=== PATIENT | male | born 1960 | race African-American/Black ===

== ENCOUNTER 2018-12-01 18:11 | Emergency (ER) | payer OTHER ==
[2018-12-01] MEDS ORDERED: KETOROLAC 30 MG/ML INJ ONE (19:05)
[2018-12-01] MEDS ORDERED: MORPHINE 4 MG/ML SYR ONE (19:56)
--- NOTE | 2018-12-01 20:02 | EDPHYS ---
Physician Documentation [facility] Name: Nain Raman Age: 58 yrs Sex: Male : 1960 Arrival Date: 12/01/2018 Time: 18:13 Bed 6 Private MD: Jesus Sorensen V ED Physician Ish العراقي HPI: 12/01 19:15 This 58 yrs old Black Male presents to ER via Ambulatory with complaints of Arm Pain, jmm Neck Pain, <24hrs Old. 19:15 The patient or guardian complains of pain. Onset: The symptoms/episode began/occurred jmm gradually, 3 month(s) ago. Modifying factors: The symptoms are alleviated by nothing. the symptoms are aggravated by movement. Associated signs and symptoms: Pertinent negatives: fever. This is a 58 year old male with a history of htn that presents to the ED with complaints of chronic right shoulder pain which has worsened over the past 3 months. States the pain radiates down his right arm. Pain is worsened with movement. Denies chest pain, denies shortness of breath. . Historical: - Allergies: 18:15 Sulfa (Sulfonamide Antibiotics); sv - Home Meds: 18:51 amlodipine 10 mg tab 1 tab once daily [Active]; losartan potassium 100 mg daily ph [Active]; - PMHx: 18:15 Hypertension; sv - PSHx: 18:15 back surgery; sv - Immunization history:: Adult Immunizations unknown. - Social history:: Smoking status: Patient/guardian denies using tobacco. - Ebola Screening: : No symptoms or risks identified at this time. ROS: 19:15 Constitutional: Negative for fever, chills, and weight loss, Cardiovascular: Negative jmm for chest pain, palpitations, and edema, Respiratory: Negative for shortness of breath, cough, wheezing, and pleuritic chest pain. 19:15 MS/extremity: Positive for pain. 19:15 All other systems are negative. Exam: 19:15 Constitutional: This is a well developed, well nourished patient who is awake, alert, jmm and in no acute distress. Head/Face: atraumatic. Eyes: EOMI, no conjunctival erythema appreciated ENT: Moist Mucus Membranes Neck: Trachea midline, Supple Chest/axilla: Normal chest wall appearance and motion. Cardiovascular: Regular rate and rhythm. No edema appreciated Respiratory: Normal respirations, no respiratory distress appreciated Abdomen/GI: Non distended, soft 19:15 Musculoskeletal/extremity: ROM: intact in all extremities, right anterior shoulder is TTP, FROM appreciated, full tree deadener strength, full radial pulse, NVI. 19:15 Skin: Appearance: Color: normal in color. 19:15 Neuro: Orientation: is normal, Mentation: is normal, Memory: is normal. 19:15 Psych: Behavior/mood is pleasant, cooperative. Vital Signs: 18:15 BP 123 / 92; Pulse 89; Resp 16; Temp 98.5; Pulse Ox 99% ; Weight 109.77 kg; Height 6 sv ft. 1 in. (185.42 cm); 19:05 BP 112 / 82; Pulse 85; Resp 17; Temp 98.7; Pulse Ox 99% ; Pain 10/10; rr5 19:50 BP 122 / 90; Pulse 80; Resp 16; Pulse Ox 98% ; Pain 10/10; rr5 20:25 BP 125 / 70; Pulse 86; Resp 16; Temp 98.1; Pulse Ox 98% ; Pain 6/10; rr5 18:15 Body Mass Index 31.93 (109.77 kg, 185.42 cm) sv MDM: 18:33 Patient medically screened. [facility] 19:59 Data reviewed: vital signs, nurses notes. Counseling: I had a detailed discussion with ban the patient and/or guardian regarding: the historical points, exam findings, and any diagnostic results supporting the discharge/admit diagnosis, radiology results, the need for outpatient follow up, to return to the emergency department if symptoms worsen or persist or if there are any questions or concerns that arise at home. ED course: Patient is alert and non toxic in appearance in the ED. Patient advised to follow up with ortho and otherwise given strict return precautions. Patient understood and agrees with the plan of care. . 12/01 18:38 Order name: Shoulder Right (2 View) XRAY; Complete Time: 20:25 [facility] Administered Medications: 19:07 Drug: Ketorolac 30 mg Route: IM; Site: left deltoid; rr5 19:55 Follow up: Response: Pain is unchanged, physician notified rr5 19:57 Drug: morphine 4 mg {Note: rass 0.} Route: IM; Site: right gluteus; rr5 20:27 Follow up: Response: No adverse reaction; Pain is decreased; RASS: Alert and Calm (0) rr5 Disposition: 12/02 09:14 Co-signature as Attending Physician, Ish العراقي MD I agree with the assessment and [facility] plan of care. Disposition: 12/01/18 20:00 Discharged to Home. Impression: Pain in right shoulder. - Condition is Stable. - Discharge Instructions: Shoulder Pain. - Prescriptions for Ultracet 37.5- 325 mg Oral Tablet - take 1 tablet by ORAL route every 6 hours - for up to 5 days; do not exceed 8 tablets per day.; 12 tablet. Zanaflex 4 mg Oral Tablet - take 1 tablet by ORAL route every 8 hours As needed; 20 tablet. Medrol (Dino) 4 mg Oral Tablets, Dose Pack - take 1 tablet by ORAL route as directed - follow package instructions; 1 packet. - Medication Reconciliation Form, Thank You Letter, Antibiotic Education, Prescription Opioid Use form. - Follow up: Private Physician; When: 2 - 3 days; Reason: Recheck today's complaints, Continuance of care, Re-evaluation by your physician. Signatures: Dispatcher [employer] Josie Thomas, RN RN Ish Trejo MD MD cha Mickail, Joel, PA PA Isabel Jacques, RN RN Silvino Saleh RN RN rr5 Corrections: (The following items were deleted from the chart) 12/01 20:27 20:00 12/01/2018 20:00 Discharged to Home. Impression: Pain in right shoulder. rr5 Condition is Stable. Forms are Medication Reconciliation Form, Thank You Letter, Antibiotic Education, Prescription Opioid Use. Follow up: Private Physician; When: 2 - 3 days; Reason: Recheck today's complaints, Continuance of care, Re-evaluation by your physician. ban
--- NOTE | 2018-12-01 20:02 | ER ---
Nurse's Notes [facility] Name: Nain Raman Age: 58 yrs Sex: Male : 1960 Arrival Date: 12/01/2018 Time: 18:13 Bed 6 Private MD: Jesus Sorensen V Diagnosis: Pain in right shoulder Presentation: 12/01 18:14 Presenting complaint: Patient states: right arm pain that radiates up the right sv shoulder started today. Denies CP or SOB. Transition of care: patient was not received from another setting of care. Onset of symptoms was December 01, 2018. Care prior to arrival: None. 18:14 Method Of Arrival: Ambulatory sv 18:14 Acuity: ALBERT 3 sv 18:22 Risk Assessment: Do you want to hurt yourself or someone else? Patient reports no ph desire to harm self or others. Initial Sepsis Screen: Does the patient meet any 2 criteria? No. Patient's initial sepsis screen is negative. Does the patient have a suspected source of infection? No. Patient's initial sepsis screen is negative. Historical: - Allergies: 18:15 Sulfa (Sulfonamide Antibiotics); sv - Home Meds: 18:51 amlodipine 10 mg tab 1 tab once daily [Active]; losartan potassium 100 mg daily ph [Active]; - PMHx: 18:15 Hypertension; sv - PSHx: 18:15 back surgery; sv - Immunization history:: Adult Immunizations unknown. - Social history:: Smoking status: Patient/guardian denies using tobacco. - Ebola Screening: : No symptoms or risks identified at this time. Screenin:22 Abuse screen: Denies threats or abuse. Denies injuries from another. Nutritional ph screening: No deficits noted. Tuberculosis screening: No symptoms or risk factors identified. Fall Risk None identified. Assessment: 18:30 General: Appears in no apparent distress. comfortable, well groomed, Behavior is calm, ph cooperative, appropriate for age, Denies fever, feeling ill. Pain: Complains of pain in right arm Pain radiates to anterior aspect of right shoulder and posterior aspect of right shoulder. Neuro: Level of Consciousness is awake, alert, obeys commands, Oriented to person, place, time, situation. Cardiovascular: Denies chest pain, nausea, shortness of breath, Capillary refill < 3 seconds in bilateral fingers Patient's skin is warm and dry. Respiratory: Airway is patent Respiratory effort is even, unlabored. Derm: Skin is intact, is healthy with good turgor, Skin is pink, warm \T\ dry. Musculoskeletal: Circulation, motion, and sensation intact. Range of motion: intact in all extremities. 19:00 General: Appears in no apparent distress. comfortable, Behavior is calm, cooperative, rr5 appropriate for age. Pain: Complains of pain in anterior aspect of right shoulder and posterior aspect of right shoulder Pain radiates to right arm Pain currently is 10 out of 10 on a pain scale. Quality of pain is described as aching, Pain began gradually, Is intermittent. Neuro: Level of Consciousness is awake, alert, obeys commands, Oriented to person, place, time, situation, Appropriate for age. Cardiovascular: Capillary refill < 3 seconds Patient's skin is warm and dry. Respiratory: Airway is patent Respiratory effort is even, unlabored, Respiratory pattern is regular, symmetrical. GI: No signs and/or symptoms were reported involving the gastrointestinal system. : No signs and/or symptoms were reported regarding the genitourinary system. EENT: No signs and/or symptoms were reported regarding the EENT system. Derm: Skin is intact, is healthy with good turgor, Skin is pink, warm \T\ dry. Musculoskeletal: Circulation, motion, and sensation intact. Capillary refill < 3 seconds, Range of motion: limited in right shoulder Reports pain in anterior aspect of right shoulder and posterior aspect of right shoulder Pain is 10 out of 10 on a pain scale. 19:50 Reassessment: ED provider informed with order made and carried out. see MAR Patient rr5 states symptoms have not improved. 20:25 Reassessment: Patient appears in no apparent distress at this time. no complaints of rr5 itchiness or .feels relieved pain score 6/10. discharge instruction given and explained, verbalized understanding Patient states feeling better. Patient states symptoms have improved. Vital Signs: 18:15 BP 123 / 92; Pulse 89; Resp 16; Temp 98.5; Pulse Ox 99% ; Weight 109.77 kg; Height 6 sv ft. 1 in. (185.42 cm); 19:05 BP 112 / 82; Pulse 85; Resp 17; Temp 98.7; Pulse Ox 99% ; Pain 10/10; rr5 19:50 BP 122 / 90; Pulse 80; Resp 16; Pulse Ox 98% ; Pain 10/10; rr5 20:25 BP 125 / 70; Pulse 86; Resp 16; Temp 98.1; Pulse Ox 98% ; Pain 6/10; rr5 18:15 Body Mass Index 31.93 (109.77 kg, 185.42 cm) ED Course: 18:13 Patient arrived in ED. as 18:13 Jesus Sorensen MD is Private Physician. as 18:15 Triage completed. sv 18:15 Arm band placed on. sv 18:17 Isabel Wynn, RN is Primary Nurse. ph 18:22 Marcio Yee PA is PHCP. [facility] 18:22 Ish العراقي MD is Attending Physician. [facility] 18:23 Patient has correct armband on for positive identification. Placed in gown. Bed in low ph position. Call light in reach. Side rails up X 1. 18:51 No provider procedures requiring assistance completed. Patient did not have IV access ph during this emergency room visit. 19:00 Shoulder Right (2 View) XRAY In Process Unspecified. EDMS Administered Medications: 19:07 Drug: Ketorolac 30 mg Route: IM; Site: left deltoid; rr5 19:55 Follow up: Response: Pain is unchanged, physician notified rr5 19:57 Drug: morphine 4 mg {Note: rass 0.} Route: IM; Site: right gluteus; rr5 20:27 Follow up: Response: No adverse reaction; Pain is decreased; RASS: Alert and Calm (0) rr5 Outcome: 20:00 Discharge ordered by MD. [facility] 20:26 Discharged to home ambulatory, with family. rr5 20:26 Condition: stable 20:26 Discharge instructions given to patient, Instructed on discharge instructions, follow up and referral plans. medication usage, Demonstrated understanding of instructions, follow-up care, medications, Prescriptions given X 3. 20:27 Patient left the ED. rr5 Signatures: Dispatcher [employer] EDMS Josie Banda, RN RN Marcio Yee PA PA jmm Martinez, Amelia as Hall, Patricia, OLGA ESPINOZA Silvino Saleh RN RN rr5
--- NOTE | 2018-12-01 20:03 | RAD REPORT ---
EXAM DESCRIPTION: Shoulder Right 2 View - 12/01/2018 6:59 pm CLINICAL HISTORY: Right arm pain, right shoulder pain COMPARISON: None. TECHNIQUE: Internal and external rotation views of the right shoulder were obtained. FINDINGS: No fracture or dislocation of the proximal humerus. Acromial humeral joint space is narrow ed. No soft tissue calcifications seen. No spurring at the AC joint. Widening of the AC joint is not clearly outside of normal range but can be correlated with the appearance of the left shoulder. No a cute or suspicious findings. IMPRESSION: No fracture, dislocation or acute right humerus finding. Relative widening of the AC joint is not outside of range of normal. Clinical concerns for a mild or grade 1 injury of the AC joint can be compared with the asymptomatic left shoulder.
[2018-12-01 20:42] VITALS: O2SAT 98
[2018-12-01 20:44] VITALS: BP 125/70; TEMP 98.1
== END 2018-12-01 20:27 | disposition home or self-care (01) ==
LOC: ER 18:11
DX: M25.511 Pain in right shoulder (principal); I10 Essential (primary) hypertension; Z88.2 Allergy status to sulfonamides
CPT/HCPCS: 96372; 99283

== ENCOUNTER 2019-01-31 14:23 | Emergency (ER) | payer OTHER ==
[2019-01-31] MEDS ORDERED: dexAMETHasone 10 MG/ML VIAL ONE (16:13)
[2019-01-31] MEDS ORDERED: KETOROLAC 30 MG/ML INJ ONE (16:13)
--- NOTE | 2019-01-31 16:48 | EDPHYS ---
Physician Documentation [facility] Name: Nain Raman Age: 58 yrs Sex: Male : 1960 Arrival Date: 01/31/2019 Time: 14:27 Bed 11 Private MD: Jesus Sorensen V ED Physician Rivera Moralez HPI: 01/31 16:39 This 58 yrs old Black Male presents to ER via Ambulatory with complaints of Arm Pain. jmm 16:39 The patient or guardian complains of pain. Onset: The symptoms/episode began/occurred jmm gradually, 1 month(s) ago. Treatment prior to arrival includes: no previous treatment. Associated signs and symptoms: Pertinent positives: decreased range of motion. This is a 58 year old male with a history of htn that presents to the ED with complaints of right shoulder pain beginning 1 month ago. Patient states the pain was transiently relieved after a visit in the ED. Symptoms have returned without any known injury. . Historical: - Allergies: 14:52 Sulfa (Sulfonamide Antibiotics); aa5 - PMHx: 14:52 Hypertension; aa5 - PSHx: 14:52 back surgery; aa5 - Immunization history:: Flu vaccine is not up to date. - Social history:: Smoking status: Patient/guardian denies using tobacco. - Ebola Screening: : No symptoms or risks identified at this time. ROS: 16:39 Constitutional: Negative for fever, chills, and weight loss, Cardiovascular: Negative jmm for chest pain, palpitations, and edema, Respiratory: Negative for shortness of breath, cough, wheezing, and pleuritic chest pain. 16:39 MS/extremity: Positive for pain. 16:39 All other systems are negative. Exam: 16:39 Constitutional: This is a well developed, well nourished patient who is awake, alert, jmm and in no acute distress. Head/Face: atraumatic. Eyes: EOMI, no conjunctival erythema appreciated ENT: Moist Mucus Membranes Neck: Trachea midline, Supple Chest/axilla: Normal chest wall appearance and motion. Cardiovascular: Regular rate and rhythm. No edema appreciated Respiratory: Normal respirations, no respiratory distress appreciated Abdomen/GI: Non distended, soft Back: Normal ROM Skin: General appearance color normal 16:39 Musculoskeletal/extremity: right lateral shoulder pain on palpation, painful abduction, full grinder watch parts strength, NVI. 16:39 Skin: Appearance: Color: normal in color. 16:39 Neuro: Motor: is normal. Vital Signs: 14:52 BP 114 / 92; Pulse 85; Resp 16 S; Temp 98.9(TE); Pulse Ox 97% on R/A; Weight 108.86 kg aa5 (R); Height 6 ft. 1 in. (185.42 cm) (R); Pain 10/10; 14:52 Body Mass Index 31.66 (108.86 kg, 185.42 cm) aa5 MDM: 16:05 Patient medically screened. [facility] 16:44 Data reviewed: vital signs, nurses notes. Counseling: I had a detailed discussion with ban the patient and/or guardian regarding: the historical points, exam findings, and any diagnostic results supporting the discharge/admit diagnosis, the need for outpatient follow up, to return to the emergency department if symptoms worsen or persist or if there are any questions or concerns that arise at home. ED course: Patient is alert and non toxic in appearance in the ED. Appears to be bursitis vs soft tissue injury related. WIll follow up with ortho for reevaluation. Patient otherwise given strict return precautions. Patient understood and agrees with the plan of care. . Administered Medications: 16:13 Drug: Dexamethasone 10 mg Route: IM; Site: left deltoid; hb 16:45 Follow up: Response: No adverse reaction hb 16:13 Drug: Ketorolac 30 mg Route: IM; Site: left deltoid; hb 16:45 Follow up: Response: No adverse reaction hb Disposition: 01/31/19 16:47 Discharged to Home. Impression: Pain in right shoulder. - Condition is Stable. - Discharge Instructions: Joint Pain. - Prescriptions for Ibuprofen 800 mg Oral Tablet - take 1 tablet by ORAL route every 8 hours As needed take with food; 30 tablet. orphenadrine citrate 100 mg Oral Tablet Sustained Release - take 1 tablet by ORAL route 2 times per day As needed; 20 tablet. - Medication Reconciliation Form, Thank You Letter, Antibiotic Education, Prescription Opioid Use form. - Follow up: Leonard Dodge MD; When: 2 - 3 days; Reason: Recheck today's complaints, Continuance of care, Re-evaluation by your physician. Addendum: 02/03/2019 10:16 Co-signature as Attending Physician, Rivera Moralez MD I agree with the assessment and k dr plan of care. Signatures: Josie Banda, RN RN Rivera Kennedy MD MD [facility] Marcio Yee PA PA jmm Calderon, Audri, RN RN aa5 Helen Donaldson RN RN Corrections: (The following items were deleted from the chart) 01/31 17:00 16:47 01/31/2019 16:47 Discharged to Home. Impression: Pain in right shoulder. sv Condition is Stable. Forms are Medication Reconciliation Form, Thank You Letter, Antibiotic Education, Prescription Opioid Use. Follow up: Leonard Dodge; When: 2 - 3 days; Reason: Recheck today's complaints, Continuance of care, Re-evaluation by your physician. ban
--- NOTE | 2019-01-31 16:48 | ER ---
Nurse's Notes [facility] Name: Nain Raman Age: 58 yrs Sex: Male : 1960 Arrival Date: 01/31/2019 Time: 14:27 Bed 11 Private MD: Jesus Sorensen V Diagnosis: Pain in right shoulder Presentation: 01/31 14:51 Presenting complaint: Patient states: right upper arm pain. Pt states "I had the pain aa5 about a month ago and they said I needed and MRI but my insurance would not pay for it". Transition of care: patient was not received from another setting of care. Onset of symptoms was 2018. Risk Assessment: Do you want to hurt yourself or someone else? Patient reports no desire to harm self or others. Initial Sepsis Screen: Does the patient meet any 2 criteria? No. Patient's initial sepsis screen is negative. Does the patient have a suspected source of infection? No. Patient's initial sepsis screen is negative. Care prior to arrival: None. 14:51 Acuity: ALBERT 4 aa5 14:51 Method Of Arrival: Ambulatory aa5 Historical: - Allergies: 14:52 Sulfa (Sulfonamide Antibiotics); aa5 - PMHx: 14:52 Hypertension; aa5 - PSHx: 14:52 back surgery; aa5 - Immunization history:: Flu vaccine is not up to date. - Social history:: Smoking status: Patient/guardian denies using tobacco. - Ebola Screening: : No symptoms or risks identified at this time. Screenin:06 Abuse screen: Denies threats or abuse. Denies injuries from another. Nutritional hb screening: No deficits noted. Tuberculosis screening: No symptoms or risk factors identified. Fall Risk None identified. Assessment: 16:06 General: Appears in no apparent distress. Behavior is calm, cooperative. Pain: Pain hb currently is 10 out of 10 on a pain scale. Neuro: Level of Consciousness is awake, alert, obeys commands, Oriented to person, place, time, situation. Cardiovascular: Capillary refill < 3 seconds Patient's skin is warm and dry. Respiratory: Airway is patent Respiratory effort is even, unlabored, Respiratory pattern is regular, symmetrical. GI: No signs and/or symptoms were reported involving the gastrointestinal system. : No signs and/or symptoms were reported regarding the genitourinary system. EENT: No signs and/or symptoms were reported regarding the EENT system. Derm: Skin is healthy with good turgor. Musculoskeletal: Reports right arm pain. Vital Signs: 14:52 BP 114 / 92; Pulse 85; Resp 16 S; Temp 98.9(TE); Pulse Ox 97% on R/A; Weight 108.86 kg aa5 (R); Height 6 ft. 1 in. (185.42 cm) (R); Pain 10/10; 14:52 Body Mass Index 31.66 (108.86 kg, 185.42 cm) [facility] ED Course: 14:27 Patient arrived in ED. mr 14:27 Jesus Sorensen MD is Private Physician. mr 14:51 Arm band placed on. aa 14:52 Triage completed. [facility] 15:56 Marcio Yee PA is PHCP. [facility] 15:56 Rivera Moralez MD is Attending Physician. [facility] 16:04 Helen Donaldson, OLGA is Primary Nurse. hb 16:06 Patient has correct armband on for positive identification. Call light in reach. hb 16:06 No provider procedures requiring assistance completed. Patient did not have IV access hb during this emergency room visit. 16:46 Leonard Dodge MD is Referral Physician. [facility] Administered Medications: 16:13 Drug: Dexamethasone 10 mg Route: IM; Site: left deltoid; hb 16:45 Follow up: Response: No adverse reaction hb 16:13 Drug: Ketorolac 30 mg Route: IM; Site: left deltoid; hb 16:45 Follow up: Response: No adverse reaction hb Outcome: 16:47 Discharge ordered by MD. [facility] 16:55 Discharged to home ambulatory, with significant other. hb 16:55 Condition: stable 16:55 Discharge instructions given to patient, significant other, Instructed on discharge instructions, follow up and referral plans. medication usage, Demonstrated understanding of instructions, follow-up care, medications, Prescriptions given X 2. 17:00 Patient left the ED. sv Signatures: Josie Banda RN RN Marcio Yee PA PA jmm Rivera, Mary mr ChiMerle RN RN [facility] Helen Donaldson RN RN
[2019-01-31 21:27] VITALS: BP 114/92; TEMP 98.9; O2SAT 97
== END 2019-01-31 17:00 | disposition home or self-care (01) ==
LOC: ER 14:23
DX: M25.511 Pain in right shoulder (principal); I10 Essential (primary) hypertension; Z88.2 Allergy status to sulfonamides
CPT/HCPCS: 96372; 99283; J1100

== ENCOUNTER 2020-05-08 14:02 | Emergency (ER) | payer BC ==
[2020-05-08] MEDS ORDERED: HYDROCODONE/APAP 10/325 TAB ONE (14:59)
--- NOTE | 2020-05-08 15:14 | RAD REPORT ---
EXAM DESCRIPTION: RAD - Knee Right 3 View - 05/08/2020 2:53 pm CLINICAL HISTORY: PAIN COMPARISON: Knee Right 3 View dated 08/16/2007 FINDINGS: No fracture, dislocation or periosteal reaction.Joint effusion is present. There is spurri ng at the quadriceps attachment and patella tendon origin off of the patella. No joint space narrowin g. Large calcific density at the tibial tubercle level is unchanged. No suspicious soft tissue findin g. IMPRESSION: Joint effusion with no acute bone finding identified. Clinical concerns for internal derangement or occult bony injury could be further assessed with MR im aging.
--- NOTE | 2020-05-08 15:18 | EDPHYS ---
Physician Documentation [facility] Name: Nain Raman Age: 59 yrs Sex: Male : 1960 Arrival Date: 05/08/2020 Time: 14:04 Bed 25 Private MD: Jesus Sorensen V ED Physician Ish العراقي HPI: 05/08 23:22 This 59 yrs old Black Male presents to ER via Ambulatory with complaints of Knee Pain. kb 23:23 The patient presents with pain, swelling, tenderness. The complaints affect the right kb knee. Context: The problem was sustained at an unknown site, resulted from an unknown cause, the patient can fully bear weight, the patient is able to ambulate, Problem is a result from a previous injury: No. Onset: The symptoms/episode began/occurred 2 week(s) ago. Modifying factors: The symptoms are alleviated by nothing. the symptoms are aggravated by nothing. Associated signs and symptoms: Pertinent positives: swelling, Pertinent negatives calf tenderness, fever, nausea, numbness, rash, tingling, vomiting, warmth, weakness. Treatment prior to arrival includes: no previous treatment. Severity of symptoms: At their worst the symptoms were mild, moderate, in the emergency department the symptoms are unchanged. The patient has not experienced similar symptoms in the past. The patient has not recently seen a physician. Pt reports right knee pain that started 2 weeks ago. Denies injury or trauma. States it feels like it swells at times. Hasn't been able to get an appt with Dr Vora. Historical: - Allergies: 14:25 Sulfa (Sulfonamide Antibiotics); iw - PMHx: 14:25 Hypertension; Hyperlipidemia; iw - PSHx: 14:25 back surgery; iw - Immunization history:: Flu vaccine is not up to date. - Social history:: Smoking status: Patient/guardian denies using tobacco, the patient reports quitting approximately 25 years ago. ROS: 23:19 Constitutional: Negative for fever, chills, and weight loss, Skin: Negative for injury, kb rash, and discoloration, Neuro: Negative for headache, weakness, numbness, tingling, and seizure. 23:19 MS/extremity: Positive for pain, swelling, tenderness, of the right knee. kb Exam: 23:19 Constitutional: This is a well developed, well nourished patient who is awake, alert, kb and in no acute distress. Head/Face: Normocephalic, atraumatic. Skin: Warm, dry with normal turgor. Normal color with no rashes, no lesions, and no evidence of cellulitis. Neuro: Awake and alert, GCS 15, oriented to person, place, time, and situation. Cranial nerves II-XII grossly intact. Moves all extremities. Sensory grossly intact. Cerebellar exam normal. Normal gait. 23:19 Respiratory: the patient does not display signs of respiratory distress, Respirations: normal. 23:19 Musculoskeletal/extremity: Extremities: grossly normal except: noted in the right knee: pain, swelling, tenderness, ROM: intact in all extremities, Circulation is intact in all extremities. Sensation intact. Weight bearing: able to fully bear weight. Vital Signs: 14:23 BP 135 / 99; Pulse 100; Resp 16; Temp 99.0; Pulse Ox 100% ; Weight 109.77 kg; Height 6 iw ft. 1 in. (185.42 cm); Pain 9/10; 15:35 BP 123 / 89; Pulse 92; Resp 16 S; Pulse Ox 99% on R/A; ca1 14:23 Body Mass Index 31.93 (109.77 kg, 185.42 cm) iw MDM: 14:27 Patient medically screened. kb 23:18 Data reviewed: vital signs, nurses notes. Data interpreted: Pulse oximetry: on room air kb is 99 %. Interpretation: normal. Counseling: I had a detailed discussion with the patient and/or guardian regarding: the historical points, exam findings, and any diagnostic results supporting the discharge/admit diagnosis, radiology results, the need for outpatient follow up, a orthopedic surgeon, to return to the emergency department if symptoms worsen or persist or if there are any questions or concerns that arise at home. 03 14:37 Order name: Knee Right 3 View XRAY; Complete Time: 15:16 kb 03 15:16 Order name: Misc. Order: knee brace; Complete Time: 15:35 kb Administered Medications: 14:43 Drug: [place] 10 mg-325 mg 1 tabs {Note: rass 0.} Route: PO; ca1 15:21 Follow up: Response: No adverse reaction; Pain is decreased; RASS: Alert and Calm (0) ca1 Disposition: 05/09 09:11 Co-signature as Attending Physician, Ish العراقي MD I agree with the assessment and kenji plan of care. Disposition: 05/08/20 15:17 Discharged to Home. Impression: Pain in right knee. - Condition is Stable. - Discharge Instructions: Musculoskeletal Pain, Knee Pain, Geur-hs-Sfdh. - Prescriptions for Tramadol 50 mg Oral Tablet - take 1 tablet by ORAL route every 8 hours as needed; 12 tablet. - Medication Reconciliation Form, Thank You Letter, Antibiotic Education, Prescription Opioid Use form. - Follow up: Private Physician; When: 2 - 3 days; Reason: Recheck today's complaints, Continuance of care, Re-evaluation by your physician. Follow up: Emergency Department; When: As needed; Reason: Worsening of condition. Signatures: Dispatcher [employer] EDShauna Hollis, Ish Moore MD MD cha Williams, Irene, OLGA ESPINOZA iw Leslie Sanchez RN RN ca1 Corrections: (The following items were deleted from the chart) 05/08 15:36 15:17 05/08/2020 15:17 Discharged to Home. Impression: Pain in right knee. Condition is ca1 Stable. Forms are Medication Reconciliation Form, Thank You Letter, Antibiotic Education, Prescription Opioid Use. Follow up: Private Physician; When: 2 - 3 days; Reason: Recheck today's complaints, Continuance of care, Re-evaluation by your physician. Follow up: Emergency Department; When: As needed; Reason: Worsening of condition. kb 23:20 23:19 Constitutional: Negative for fever, chills, and weight loss, kb
--- NOTE | 2020-05-08 15:18 | ER ---
Nurse's Notes [facility] Name: Nain Raman Age: 59 yrs Sex: Male : 1960 Arrival Date: 05/08/2020 Time: 14:04 Bed 25 Private MD: Jesus Sorensen V Diagnosis: Pain in right knee Presentation: 05/08 14:23 Chief complaint: Patient states: right knee has been hurting and it's been swollen, has iw had sharp pain for a couple weeks. Coronavirus screen: At this time, the client does not indicate any symptoms associated with coronavirus-19. Ebola Screen: Patient negative for fever greater than or equal to 101.5 degrees Fahrenheit, and additional compatible Ebola Virus Disease symptoms Patient denies exposure to infectious person. Patient denies travel to an Ebola-affected area in the 21 days before illness onset. No symptoms or risks identified at this time. Initial Sepsis Screen: Does the patient meet any 2 criteria? No. Patient's initial sepsis screen is negative. Does the patient have a suspected source of infection? No. Patient's initial sepsis screen is negative. Risk Assessment: Do you want to hurt yourself or someone else? Patient reports no desire to harm self or others. Onset of symptoms was April 29, 2020. 14:23 Method Of Arrival: Ambulatory iw 14:23 Acuity: ALBERT 4 iw Historical: - Allergies: 14:25 Sulfa (Sulfonamide Antibiotics); iw - PMHx: 14:25 Hypertension; Hyperlipidemia; iw - PSHx: 14:25 back surgery; iw - Immunization history:: Flu vaccine is not up to date. - Social history:: Smoking status: Patient/guardian denies using tobacco, the patient reports quitting approximately 25 years ago. Screenin:30 Abuse screen: Denies threats or abuse. Denies injuries from another. Nutritional ca1 screening: No deficits noted. Tuberculosis screening: No symptoms or risk factors identified. Fall Risk None identified. Assessment: 14:30 General: Appears in no apparent distress. comfortable, Behavior is calm, cooperative, ca1 appropriate for age. Pain: Complains of pain in right knee Pain currently is 9 out of 10 on a pain scale. Quality of pain is described as aching, sharp, Pain began 2 weeks Aggravated by weight bearing. Neuro: Level of Consciousness is awake, alert, obeys commands, Oriented to person, place, time, situation. Derm: Skin is intact, is healthy with good turgor, Skin is pink, warm \T\ dry. Musculoskeletal: Circulation, motion, and sensation intact. Capillary refill < 3 seconds, Swelling present in right knee. 15:35 Reassessment: Patient appears in no apparent distress at this time. Patient is alert, ca1 oriented x 3, equal unlabored respirations, skin warm/dry/pink. Vital Signs: 14:23 BP 135 / 99; Pulse 100; Resp 16; Temp 99.0; Pulse Ox 100% ; Weight 109.77 kg; Height 6 iw ft. 1 in. (185.42 cm); Pain 9/10; 15:35 BP 123 / 89; Pulse 92; Resp 16 S; Pulse Ox 99% on R/A; ca1 14:23 Body Mass Index 31.93 (109.77 kg, 185.42 cm) iw ED Course: 14:04 Patient arrived in ED. am2 14:04 Jesus Sorensen MD is Private Physician. am2 14:25 Triage completed. iw 14:26 Arm band placed on. iw 14:27 Shauna Navarro FNP-C is PHCP. kb 14:27 Ish العراقي MD is Attending Physician. kb 14:28 Leslie Sanchez, OLGA is Primary Nurse. ca1 14:30 Patient has correct armband on for positive identification. Bed in low position. Call ca1 light in reach. Side rails up X 1. Pulse ox on. NIBP on. Warm blanket given. 14:52 Knee Right 3 View XRAY In Process Unspecified. EDMS 15:35 No provider procedures requiring assistance completed. Patient did not have IV access ca1 during this emergency room visit. Knee immobilizer applied on right knee. Administered Medications: 14:43 Drug: [place] 10 mg-325 mg 1 tabs {Note: rass 0.} Route: PO; ca1 15:21 Follow up: Response: No adverse reaction; Pain is decreased; RASS: Alert and Calm (0) ca1 Outcome: 15:17 Discharge ordered by . kb 15:35 Discharged to home ambulatory. ca1 15:35 Condition: stable 15:35 Discharge instructions given to patient, Instructed on discharge instructions, follow up and referral plans. no drinking with medication, no driving heavy equipment, medication usage, Demonstrated understanding of instructions, follow-up care, medications, Prescriptions given X 1. 15:36 Patient left the ED. ca1 Signatures: Dispatcher [employer] EDShauna Hollis, BETI-C BETI-Yudith Morales, RN Shy Talavera Cheryl, RN RN ca1
[2020-05-08 15:40] VITALS: TEMP 99
[2020-05-08 15:41] VITALS: BP 123/89; O2SAT 99
== END 2020-05-08 15:36 | disposition home or self-care (01) ==
LOC: ER 14:02
DX: M25.561 Pain in right knee (principal); I10 Essential (primary) hypertension; Z88.2 Allergy status to sulfonamides
CPT/HCPCS: 99284

== ENCOUNTER 2020-05-21 20:37 | Emergency (ER) | payer BC ==
--- NOTE | 2020-05-21 21:45 | EDPHYS ---
Physician Documentation [facility] Name: Nain Raman Age: 59 yrs Sex: Male : 1960 Arrival Date: 05/21/2020 Time: 20:39 Bed 23 Private MD: Jesus Sorensen V ED Physician Daljit Yost HPI: 05/21 23:15 This 59 yrs old Black Male presents to ER via Ambulatory with complaints of Knee Pain. kb 23:15 The patient presents with pain, that is acute, swelling, tenderness. The complaints kb affect the right knee. Context: The problem was sustained at an unknown site, resulted from an unknown cause, the patient can fully bear weight, the patient is able to ambulate. Onset: The symptoms/episode began/occurred 3 week(s) ago. Modifying factors: The symptoms are alleviated by nothing. the symptoms are aggravated by movement. Associated signs and symptoms: Pertinent positives: swelling, Pertinent negatives calf tenderness, fever, nausea, numbness, rash, tingling, vomiting, warmth, weakness. Treatment prior to arrival includes: no previous treatment. Severity of symptoms: At their worst the symptoms were moderate, in the emergency department the symptoms are unchanged. The patient has not experienced similar symptoms in the past. The patient has not recently seen a physician. Pt reports pain and swelling to right knee. States he was seen here at the start of the pain, x-ray was normal. Has MRI scheduled for Sunday, but couldn't take the pain. Historical: - Allergies: 20:45 Sulfa (Sulfonamide Antibiotics); ca1 - PMHx: 20:45 Hyperlipidemia; Hypertension; ca1 - PSHx: 20:45 back surgery; ca1 - Immunization history:: Flu vaccine is not up to date. - Social history:: Smoking status: Patient denies any tobacco usage or history of. ROS: 23:14 Constitutional: Negative for fever, chills, and weight loss, Skin: Negative for injury, kb rash, and discoloration, Neuro: Negative for headache, weakness, numbness, tingling, and seizure. 23:14 MS/extremity: Positive for pain, swelling, tenderness, of the right knee. Exam: 23:14 Constitutional: This is a well developed, well nourished patient who is awake, alert, kb and in no acute distress. Head/Face: Normocephalic, atraumatic. Respiratory: Respirations even and unlabored. No increased work of breathing, no retractions or nasal flaring. Skin: Warm, dry with normal turgor. Normal color. Neuro: Awake and alert, GCS 15, oriented to person, place, time, and situation. Moves all extremities. Normal gait. 23:14 Musculoskeletal/extremity: Extremities: grossly normal except: noted in the right knee: pain, swelling, tenderness, ROM: intact in all extremities, Circulation is intact in all extremities. Sensation intact. Weight bearing: able to fully bear weight. Vital Signs: 20:45 BP 124 / 90; Pulse 99; Resp 16; Temp 97.8(TE); Pulse Ox 99% on R/A; Weight 108.86 kg ca1 (R); Height 6 ft. 1 in. (185.42 cm) (R); Pain 10/10; 21:48 BP 122 / 87; Pulse 98; Resp 18; Pulse Ox 100% on R/A; vg1 20:45 Body Mass Index 31.66 (108.86 kg, 185.42 cm) ca1 MDM: 21:26 Patient medically screened. kb 23:14 Data reviewed: vital signs, nurses notes. Data interpreted: Pulse oximetry: on room air kb is 100 %. Interpretation: normal. Counseling: I had a detailed discussion with the patient and/or guardian regarding: the historical points, exam findings, and any diagnostic results supporting the discharge/admit diagnosis, the need for outpatient follow up, a orthopedic surgeon, to return to the emergency department if symptoms worsen or persist or if there are any questions or concerns that arise at home. Administered Medications: 21:40 Drug: [place] 10 mg-325 mg 1 tabs Route: PO; vg1 22:02 Follow up: Response: No adverse reaction vg1 Disposition: 05/22 07:15 Co-signature as Attending Physician, Daljit Yost MD. mh7 Disposition: 05/21/20 21:45 Discharged to Home. Impression: Pain in right knee. - Condition is Stable. - Discharge Instructions: Musculoskeletal Pain, Knee Pain, [id number]-Efsv. - Prescriptions for Tramadol 50 mg Oral Tablet - take 1 tablet by ORAL route every 8 hours as needed; 12 tablet. - Medication Reconciliation Form, Thank You Letter, Antibiotic Education, Prescription Opioid Use form. - Follow up: Emergency Department; When: As needed; Reason: Worsening of condition. Follow up: Private Physician; When: 2 - 3 days; Reason: Recheck today's complaints, Continuance of care, Re-evaluation by your physician. Signatures: Shauna Navarro FNP-C FNP-Leslie Pretty, RN RN ca1 Amanda Magana RN RN vg1 Daljit Yost MD MD mh7 Corrections: (The following items were deleted from the chart) 05/21 22:01 21:45 05/21/2020 21:45 Discharged to Home. Impression: Pain in right knee. Condition is vg1 Stable. Forms are Medication Reconciliation Form, Thank You Letter, Antibiotic Education, Prescription Opioid Use. Follow up: Emergency Department; When: As needed; Reason: Worsening of condition. Follow up: Private Physician; When: 2 - 3 days; Reason: Recheck today's complaints, Continuance of care, Re-evaluation by your physician. kb 23:15 23:14 Musculoskeletal/extremity: Extremities: grossly normal except: noted in the right kb knee: pain, swelling, tenderness, ROM: intact in all extremities, Circulation is intact in all extremities. Sensation intact. kb
--- NOTE | 2020-05-21 21:45 | ER ---
Nurse's Notes [facility] Name: Nain Raman Age: 59 yrs Sex: Male : 1960 Arrival Date: 05/21/2020 Time: 20:39 Bed 23 Private MD: Jesus Sorensen V Diagnosis: Pain in right knee Presentation: 05/21 20:42 Chief complaint: Chief complaint: Patient states: R knee pain x 3 weeks. Getting worse, ca1 now it's swollen. Has An MRI appointment with Dr. Vora on Sunday but pain is just unbearable tonight. Denies injury to the knee. Coronavirus screen: Client denies travel out of the [place] in the last 14 days. At this time, the client does not indicate any symptoms associated with coronavirus-19. Ebola Screen: Patient negative for fever greater than or equal to 101.5 degrees Fahrenheit, and additional compatible Ebola Virus Disease symptoms Patient denies exposure to infectious person. Patient denies travel to an Ebola-affected area in the 21 days before illness onset. No symptoms or risks identified at this time. Initial Sepsis Screen: Does the patient meet any 2 criteria? No. Patient's initial sepsis screen is negative. Does the patient have a suspected source of infection? No. Patient's initial sepsis screen is negative. Risk Assessment: Do you want to hurt yourself or someone else? Patient reports no desire to harm self or others. Onset of symptoms was May 21, 2020. 20:42 Method Of Arrival: Ambulatory ca1 20:42 Acuity: ALBERT 4 ca1 Historical: - Allergies: 20:45 Sulfa (Sulfonamide Antibiotics); ca1 - PMHx: 20:45 Hyperlipidemia; Hypertension; ca1 - PSHx: 20:45 back surgery; ca1 - Immunization history:: Flu vaccine is not up to date. - Social history:: Smoking status: Patient denies any tobacco usage or history of. Screenin:48 Abuse screen: Denies threats or abuse. Nutritional screening: No deficits noted. vg1 Tuberculosis screening: No symptoms or risk factors identified. Fall Risk No fall in past 12 months (0 pts). No secondary diagnosis (0 pts). No IV (0 pts). Ambulatory Aid- None/Bed Rest/Nurse Assist (0 pts). Gait- Normal/Bed Rest/Wheelchair (0 pts) Mental Status- Oriented to own ability (0 pts). Total Jewell Fall Scale indicates No Risk (0-24 pts). Assessment: 21:34 Reassessment: Received VO from RAKAN Villatoro to administer Noroc 10 mg/ 325 mg PO x1. vg1 21:40 General: Appears in no apparent distress. uncomfortable, Behavior is calm, cooperative. vg1 Pain: Complains of pain in right knee Pain currently is 8 out of 10 on a pain scale. Pain began about 3 weeks ago. 21:40 Neuro: Level of Consciousness is awake, alert, obeys commands, Oriented to person, vg1 place, time, situation. Cardiovascular: Patient's skin is warm and dry. Respiratory: Airway is patent Respiratory effort is even, unlabored. GI: No signs and/or symptoms were reported involving the gastrointestinal system. : No signs and/or symptoms were reported regarding the genitourinary system. EENT: No signs and/or symptoms were reported regarding the EENT system. Derm: Skin is intact, is healthy with good turgor. Musculoskeletal: Swelling present in right knee. Vital Signs: 20:45 BP 124 / 90; Pulse 99; Resp 16; Temp 97.8(TE); Pulse Ox 99% on R/A; Weight 108.86 kg ca1 (R); Height 6 ft. 1 in. (185.42 cm) (R); Pain 10/10; 21:48 BP 122 / 87; Pulse 98; Resp 18; Pulse Ox 100% on R/A; vg1 20:45 Body Mass Index 31.66 (108.86 kg, 185.42 cm) ca1 ED Course: 20:39 Patient arrived in ED. es 20:40 Jesus Sorensen MD is Private Physician. es 20:44 Triage completed. ca1 20:45 Arm band placed on right wrist. ca1 20:56 Shauna Navarro FNP-C is [facility]. kb 20:56 Daljit Yost MD is Attending Physician. kb 21:35 Amanda Magana, OLGA is Primary Nurse. vg1 21:49 Patient has correct armband on for positive identification. Bed in low position. Call vg1 light in reach. Side rails up X 1. 21:49 Patient did not have IV access during this emergency room visit. vg1 21:49 No provider procedures requiring assistance completed. vg1 Administered Medications: 21:40 Drug: [place] 10 mg-325 mg 1 tabs Route: PO; vg1 22:02 Follow up: Response: No adverse reaction vg1 Outcome: :45 Discharge ordered by MD. sharp 21:49 Discharged to home ambulatory. vg1 21:49 Condition: stable 21:49 Discharge instructions given to patient, Instructed on discharge instructions, follow up and referral plans. medication usage, Demonstrated understanding of instructions, follow-up care, medications, Prescriptions given X 1. 22:01 Patient left the ED. vg1 Signatures: hSauna Navarro, CATTLE KNOCKER-C CATTLE KNOCKER-Karla Mahan Cheryl RN RN ca1 Amanda Magana RN RN vg1 Corrections: (The following items were deleted from the chart) 21:35 21:34 Reassessment: Received VO from RAKAN Villatoro to administer Noroc 10 mg PO x1 vg1 vg1 21:48 21:40 Pain: Complains of pain in right knee vg1 vg1
[2020-05-21] MEDS ORDERED: HYDROCODONE/APAP 10/325 TAB ONE (21:54)
[2020-05-21 22:18] VITALS: TEMP 97.8
[2020-05-21 22:19] VITALS: BP 122/87; O2SAT 100
== END 2020-05-21 22:01 | disposition home or self-care (01) ==
LOC: ER 20:37
DX: M25.561 Pain in right knee (principal); I10 Essential (primary) hypertension; Z88.2 Allergy status to sulfonamides
CPT/HCPCS: 99283

== ENCOUNTER 2023-11-06 19:35 | Emergency (ER) | payer OTHER ==
[2023-11-06] MEDS ORDERED: HYDROCODONE/APAP 5/325 MG TAB ONE (20:12)
--- NOTE | 2023-11-06 20:43 | RAD REPORT ---
EXAM DESCRIPTION: US - Extremity Venous Uni Ltd - 11/06/2023 8:31 pm CLINICAL HISTORY: PAIN Leg swelling and edema. COMPARISON: <Comparisons> FINDINGS: Right lower extremity venous system was interrogated with Doppler technique. Normal flow, compressibility and augmentation was noted. There is no DVT present. IMPRESSION: No evidence of right lower extremity deep venous thrombosis.
--- NOTE | 2023-11-06 20:47 | EDPHYS ---
Physician Documentation [facility] Name: Nain Raman Age: 63 yrs Sex: Male : 1960 Arrival Date: 11/06/2023 Time: 19:35 Bed DX3 Private MD: ED Physician Erick Garcia HPI: 11/05 19:51 This 63 yrs old Black Male presents to ER via Unassigned with complaints of Leg Pain. kb 19:51 Pt is a 63 year old male who presents for right upper leg pain that started upon waking kb this morning. denies injury or trauma. States the pain has gotten worse throughout the day. . Historical: - Allergies: 19:56 Sulfa (Sulfonamide Antibiotics); me1 - PMHx: 19:56 Hepatitis B; Hyperlipidemia; Hypertension; me1 - PSHx: 19:56 back surgery; Right total knee replacement; Rotator cuff surgery (left); me1 - Immunization history:: Adult Immunizations up to date. - Infectious Disease History:: Denies. - Social history:: Smoking status: Patient/guardian denies using tobacco, but has a distant history of tobacco abuse. ROS: 19:51 Constitutional: As per HPI kb Exam: 19:51 Constitutional: This is a well developed, well nourished patient who is awake, alert, kb and in no acute distress. Head/Face: Normocephalic, atraumatic. ENT: Moist Mucous membranes Cardiovascular: Regular rate Respiratory: Respirations even and unlabored. No increased work of breathing. Talking in full sentences Abdomen/GI: Soft, non-tender. No distention Skin: Warm, dry with normal turgor. Normal color. Neuro: Awake and alert, GCS 15, oriented to person, place, time, and situation. Moves all extremities. Normal gait. 19:51 Musculoskeletal/extremity: Extremities: grossly normal except: noted in the lateral aspect of right thigh: pain, tenderness, ROM: intact in all extremities, Circulation is intact in all extremities. Sensation intact. Weight bearing: able to fully bear weight, Vital Signs: 19:55 BP 128 / 94; Pulse 73; Resp 17; Temp 98.4; Pulse Ox 99% ; Weight 104.78 kg; Height 6 me1 ft. 1 in. ; Pain 10/10; 19:55 Body Mass Index 30.48 (104.78 kg, 185.42 cm) me1 19:55 Pain Scale: Adult me1 MDM: 19:49 Patient medically screened. kb 20:45 Differential diagnosis: sprain, strain, dvt. Data reviewed: vital signs, nurses notes. kb Test considered but Not performed: X-ray: femur x-ray considered but pt has no bony tenderness, ambulates with steady gait, denies injury or trauma. Historians other than the Patient: Spouse/Significant Other: . Counseling: I had a detailed discussion with the patient and/or guardian regarding the historical points, exam findings, and any diagnostic results supporting the discharge/admit diagnosis, radiology results, the need for outpatient follow up, a family practitioner, to return to the emergency department if symptoms worsen or persist or if there are any questions or concerns that arise at home. 11/05 19:54 Order name: US Extremity Venous Unilateral Ltd; Complete Time: 20:44 kb Administered Medications: 20:15 Drug: HYDROcodone-acetaminophen PO 5 mg-325 mg 1 tabs PO once Route: PO; jb4 21:03 Follow up: Response: No adverse reaction; Marked relief of symptoms; RASS: Alert and jb4 Calm (0) Disposition Summary: 11/06/23 20:46 Discharge Ordered Notes: Location: Home kb Condition: Stable kb Diagnosis - Pain in right leg kb Followup: kb - With: Emergency Department - When: As needed - Reason: Worsening of condition Followup: kb - With: Private Physician - When: 2 - 3 days - Reason: Recheck today's complaints, Continuance of care, Re-evaluation by your physician Discharge Instructions: - Discharge Summary Sheet kb - Musculoskeletal Pain kb - Muscle Strain, [id number] kb Forms: - Medication Reconciliation Form kb - Antibiotic Education kb - Prescription Opioid Use kb - Patient Portal Instructions kb - Leadership Thank You Letter kb Prescriptions: - Diclofenac Sodium 75 mg Oral tablet, delayed release (enteric coated) - take 1 tablet ORAL route 2 times per day As needed; 30 tablet; Refills: 0, kb Product Selection Permitted - orphenadrine citrate 100 mg Oral Tablet Sustained Release - take 1 tablet ORAL route 2 times per day As needed; 20 tablet; Refills: 0, kb Product Selection Permitted Addendum: 11/11/2023 09:08 Co-signature as Attending Physician, Erick Garcia MD I reviewed the patient's care r t provided by the Advanced Practice Provider and agree with the diagnosis and treatment plan. Signatures: Dispatcher [employer] Shauna Urrutia, MAYAC BETI-Cr Ibanez, RN RN jb4 Erick Garcia MD MD rt Vianey Oshea RN RN me1
--- NOTE | 2023-11-06 20:47 | ER ---
Nurse's Notes [facility] Name: Nain Raman Age: 63 yrs Sex: Male : 1960 Arrival Date: 11/06/2023 Time: 19:35 Bed DX3 Private MD: Diagnosis: Pain in right leg Presentation: 11/05 19:55 Chief complaint: Patient states: right upper leg pain that started this morning and me1 worsened throughout the day. Denies injury. Coronavirus screen: Vaccine status: Patient reports receiving the 2nd dose of the covid vaccine. Ebola Screen: No symptoms or risks identified at this time. Initial Sepsis Screen: Does the patient meet any 2 criteria? No. Patient's initial sepsis screen is negative. Does the patient have a suspected source of infection? No. Patient's initial sepsis screen is negative. Risk Assessment: Do you want to hurt yourself or someone else? Patient reports no desire to harm self or others. Onset of symptoms was November 06, 2023. 19:55 Method Of Arrival: Ambulatory me1 19:55 Acuity: ALBERT 4 me1 Historical: - Allergies: 19:56 Sulfa (Sulfonamide Antibiotics); me1 - PMHx: 19:56 Hepatitis B; Hyperlipidemia; Hypertension; me1 - PSHx: 19:56 back surgery; Right total knee replacement; Rotator cuff surgery (left); me1 - Immunization history:: Adult Immunizations up to date. - Infectious Disease History:: Denies. - Social history:: Smoking status: Patient/guardian denies using tobacco, but has a distant history of tobacco abuse. Screenin:01 [facility] ED Fall Risk Assessment (Adult) History of falling in the last 3 months, jb4 including since admission No falls in past 3 months (0 pts) Confusion or Disorientation No (0 pts) Intoxicated or Sedated No (0 pts) Impaired Gait No (0 pts) Mobility Assist Device Used No (0 pt) Altered Elimination No (0 pt) Score/Fall Risk Level 0 - 2 = Low Risk Oriented to surroundings, Maintained a safe environment. Abuse screen: Denies threats or abuse. Nutritional screening: No deficits noted. Tuberculosis screening: No symptoms or risk factors identified. Assessment: 21:01 General: Appears in no apparent distress. comfortable, Behavior is calm, cooperative, jb4 appropriate for age. Pain: Complains of pain in right leg Pain does not radiate. Pain currently is 3 out of 10 on a pain scale. Neuro: Level of Consciousness is awake, alert, obeys commands, Oriented to person, place, time, situation. Cardiovascular: Patient's skin is warm and dry. Respiratory: Airway is patent Respiratory effort is even, unlabored, Respiratory pattern is regular, symmetrical. Derm: Skin is intact, Skin is pink, warm \T\ dry. Musculoskeletal: Circulation, motion, and sensation intact. Range of motion: intact in all extremities. Vital Signs: 19:55 BP 128 / 94; Pulse 73; Resp 17; Temp 98.4; Pulse Ox 99% ; Weight 104.78 kg; Height 6 me1 ft. 1 in. ; Pain 10/10; 19:55 Body Mass Index 30.48 (104.78 kg, 185.42 cm) ga1 19:55 Pain Scale: Adult [facility] [place] ED Course: 19:38 Patient arrived in ED. jj6 19:48 Shauna Navarro FNP-C [facility]. kb 19:48 Erick Garcia MD is Attending Physician. kb 19:56 Triage completed. ga1 19:56 Arm band placed on Patient placed in an exam room. me1 20:33 US Extremity Venous Unilateral Ltd In Process Unspecified. EDMS 21:01 Patient has correct armband on for positive identification. Bed in low position. Call jb4 light in reach. Side rails up X 1. Provided Education on: discharge instructions.. 21:01 No provider procedures requiring assistance completed. Patient did not have IV access jb4 during this emergency room visit. Administered Medications: 20:15 Drug: HYDROcodone-acetaminophen PO 5 mg-325 mg 1 tabs PO once Route: PO; jb4 21:03 Follow up: Response: No adverse reaction; Marked relief of symptoms; RASS: Alert and jb4 Calm (0) Medication: 21:01 VIS not applicable for this client. jb4 Outcome: 20:46 Discharge ordered by . kb 21:01 Discharged to home ambulatory, with family, jb4 21:01 Condition: stable 21:01 Discharge instructions given to patient, Instructed on discharge instructions, follow up and referral plans. no drinking with medication, no driving heavy equipment, medication usage, Demonstrated understanding of instructions, follow-up care, medications, Prescriptions given X 2, 21:03 Patient left the ED. jb4 Signatures: Dispatcher [employer] Shauna Urrutia, BETI-C BETI-Cr Ibanez, RN RN jb4 Nathalie Tompkins jj6 Vianey Oshea, RN RN me1
[2023-11-06 21:08] VITALS: BP 128/94; TEMP 98.4; O2SAT 99
== END 2023-11-06 21:03 | disposition home or self-care (01) ==
LOC: ER 19:35
DX: M79.604 Pain in right leg (principal)
CPT/HCPCS: 93971; 99283